=== PATIENT | male | born 1980 | race Caucasian/White ===

== ENCOUNTER 2020-12-13 13:48 | Inpatient (IN) | payer OTHER, SELFPAY ==
[2020-12-13 14:32] VITALS: BP 157/96; PULSE 88; RESP 18; TEMP 36.6; O2SAT 98; BMI 30.4
--- NOTE | 2020-12-13 15:42 | ED_ITS ---
HPI - Psych General Chief Complaint: Psychiatric Symptoms <DIONNA Junior - Last Filed: 12/13/20 17:00> Stated Complaint: withdrawal - crisis <DIONNA Junior Last Filed: 12/13/20 17:00> Time Seen by Provider: 12/13/20 15:03 <DIONNA Junior Last Filed: 12/13/20 17:00> Source: patient <DIONNA Junior Last Filed: 12/13/20 17:00> Mode of arrival: ambulatory <DIONNA Junior Last Filed: 12/13/20 17:00> History of Present Illness HPI Narrative: 40-year-old male with no significant past medical history presenting to the ED complaining of suicidal ideations with vague plan, increased anxiety, and reported withdrawal symptoms from Klonopin and Remeron which he stopped taking about 40 hours ago. Reports medication have not been working for him and has been fed up, states his doctor is not listening to him. Also reports acute on chronic abdominal discomfort and diarrhea. Denies nausea, vomiting, fever, chills, cough, CP/SOB, EtOH/illicit drug use, HI <DIONNA Junior Last Filed: 12/13/20 17:00> Related Data Home Medications: Home Medications Medication Instructions Recorded Confirmed clonazepam 1 mg PO TID PRN 12/13/20 12/13/20 mirtazapine 15 mg PO BEDTIME 12/13/20 12/13/20 <DIONNA Junior - Last Filed: 12/13/20 17:00> Allergies/Adverse Reactions: Allergies Allergy/AdvReac Type Severity Reaction Status Date / Time No Known Allergies Allergy Unverified 12/13/20 15:16 <DIONNA Junior Last Filed: 12/13/20 17:00> Review of Systems Review of Systems: Constitutional: No Fever, No Chills, No Fatigue, No Malaise Cardiovascular: No Chest Pain, No SOB Respiratory: No Cough, No Dyspnea Gastrointestinal: No Nausea, No Vomiting, + Diarrhea, No Constipation, + Abdominal pain Genitourinary: No Dysuria, No Urinary Frequency, No Hematuria, No Flank Pain Musculoskeletal: No joint pain, No Myalgias, No Joint Swelling Skin: No Skin Lesions, No rash Psych: +Anxiety/Panic, No Depression, + SI/HI <DIONNA Junior - Last Filed: 12/13/20 17:00> Yes all other systems are reviewed and are negative <DIONNA Junior - Last Filed: 12/13/20 17:00> [facility] Past Medical History Attestation statement: The following information was validated with the patient. <DIONNA Junior - Last Filed: 12/13/20 17:00> Social History Social History: Social History Advance Directives: No Advance Directives Information Provided: No <DIONNA Junior - Last Filed: 12/13/20 17:00> Physical Exam Vital Signs: Vital Signs: Last Vital Signs Temp 98.0 F 12/13/20 23:36 Pulse 84 12/13/20 23:36 Resp 16 12/13/20 23:36 BP 136/86 12/13/20 23:36 Pulse Ox 98 12/13/20 23:36 Body Mass Index 30.4 <DIONNA Junior - Last Filed: 12/13/20 17:00> Vital Signs: Last Vital Signs Temp 98.0 F 12/13/20 23:36 Pulse 84 12/13/20 23:36 Resp 16 12/13/20 23:36 BP 136/86 12/13/20 23:36 Pulse Ox 98 12/13/20 23:36 Body Mass Index 30.4 <MOUSTAPHA Peñaloza-JOSÉ MIGUEL - Last Filed: 12/14/20 01:49> Const: Other: anxious/guarded <DIONNA Junior - Last Filed: 12/13/20 17:00> General: cooperative, healthy appearing, alert and awake <DIONNA Junior - Last Filed: 12/13/20 17:00> Limitations: no limitations <DIONNA Junior - Last Filed: 12/13/20 17:00> HENMT: Head: Yes normal to inspection <DIONNA Junior - Last Filed: 12/13/20 17:00> Ears: hearing grossly normal bilaterally <DIONNA Junior - Last Filed: 12/13/20 17:00> General nose exam: Normal external nose present <DIONNA Junior - Last Filed: 12/13/20 17:00> Face and sinus: Yes normal facial exam <Radha Mesha NC - Last Filed: 12/13/20 17:00> Eyes: General: appearance normal, both eyes and all related structures <Radha Mesha NC - Last Filed: 12/13/20 17:00> EOM: EOMs intact bilaterally <Radha Mesha NC - Last Filed: 12/13/20 17:00> Neck: Neck: Yes normal visual inspection and Yes no meningeal signs <Radha Zimmer NC - Last Filed: 12/13/20 17:00> Resp: Effort & Inspection: normal respiratory effort <Radhadarius Zimmer NC - Last Filed: 12/13/20 17:00> Auscultation: clear to auscultation bilaterally, no rales, no rhonchi and no wheezes <Radhadarius Zimmer NC - Last Filed: 12/13/20 17:00> Cardio: Rate: regular rate <Radha Zimmer NC - Last Filed: 12/13/20 17:00> Heart sounds: S1 normal heart sound present and S2 normal heart sound present <Radha Mesha NC - Last Filed: 12/13/20 17:00> GI: Inspection: Yes normal to inspection <Radhadarius Zimmer NC - Last Filed: 12/13/20 17:00> Palpation (GI): Soft to palpation, nontender, no guarding and not rigid <Radhadarius Zimmer NC - Last Filed: 12/13/20 17:00> Skin: Rashes: no rashes <Radha Zimmer NC - Last Filed: 12/13/20 17:00> Wounds: no wounds <Radha Mesha NC - Last Filed: 12/13/20 17:00> Neuro: General: no meningeal signs <Radha Zimmer NC - Last Filed: 12/13/20 17:00> Gait exam (Neuro): Normal gait present <Radha Zimmer NC - Last Filed: 12/13/20 17:00> Extrem: General: Yes normal to inspection <Radha Zimmer NC - Last Filed: 12/13/20 17:00> Psych: Appearance: grossly normal <Radha Zimmer NC - Last Filed: 12/13/20 17:00> Attitude: Guarded attititude/behavior present <DIONNA Junior - Last Fi led: 12/13/20 17:00> Thought process: Perseverating thought process present <DIONNA Junior - Last Filed: 12/13/20 17:00> Thought content: Suicidality present and Depressive thoughts present <DIONNA Junior - Last Filed: 12/13/20 17:00> Course Course Course Narrative: -labs unremarkable -1700-- physician observation initiated as patient needs more time to be evaluated by BHN. ED care transferred to [facility]RI[facility] pending BHN eval <DIONNA Junior - Last Filed: 12/13/20 17:00> Provider observation continued. Awaiting for BHN evaluation for the need for psych admission. During observation patient's vitals were stable, patient is alert and oriented. Neural: Nonfocal, lung sounds clear. Respirations nonlabored. Patient reported to have urgency to void, urine was done and negative for leukocytosis, ketones or blood. <SAURABH Peñaloza - Last Filed: 12/14/20 01:49> MDM - Psych MDM Narrative Medical decision making narrative: 40-year-old male with no significant past medical history presenting to the ED complaining of suicidal ideations with vague plan, increased anxiety, and reported withdrawal symptoms from Klonopin and Remeron which he stopped taking about 40 hours ago. On exam VSS, NAD, physical exam as above, abdomen soft/nontender. Low concern for SBO/gastroenteritis or colitis/appendicitis without tenderness on exam. Plan: Labs, UA, MCMILLAN, drug screen, BHN consult <DIONNA Junior - Last Filed: 12/13/20 17:00> Medical Records Attestation: I reviewed the patient's medical records. <DIONNA Junior - Last Filed: 12/13/20 17:00> Lab Data Attestation: I reviewed the patient's lab results. <DIONNA Junior - Last Filed: 12/13/20 17:00> Result diagrams: : 12/13/20 15:41 12/13/20 15:41 <DIONNA Junior - Last Filed: 12/13/20 17:00> Labs: Lab Results 12/13/20 12/13/20 12/13/20 Range/Units 15:41 15:41 15:41 WBC 11.3 H (4.8-10.8) X10*3/uL RBC 5.42 (4.60-5.80) X10*6/uL Hgb 17.4 (14.0-18.0) g/dl Hct 49.9 (42-52) % MCV 92.1 (80-98) fL MCH 32.1 (27.0-33.0) pg MCHC 34.9 (31.0-36.0) g/dl RDW 11.9 (11.0-16.0) % Plt Count 247 (160-400) X10*3/uL MPV 8.5 L (9.4-12.4) fL Immature Gran % (Auto) 0.4 (0.0-0.4) % Neut % (Auto) 76.2 H (45-73) % Lymph % (Auto) 17.8 L (20-40) % [place] % (Auto) 5.2 (2-11) % Eos % (Auto) 0.1 (0-4) % Baso % (Auto) 0.3 (0-2) % Lymph # (Auto) 2.0 (1.2-4.9) X10*3/uL [place] # (Auto) 0.6 (0.1-1.2) X10*3/uL Eos # (Auto) 0.0 (0.0-0.4) X10*3/uL Baso # (Auto) 0.0 (0.0-0.2) X10*3/uL Abs Immat Gran (auto) 0.04 H (0.00-0.03) X10*3/uL Absolute Neuts (auto) 8.6 H (2.0-8.3) X10*3/uL Absolute Nucleated RBC 0.000 (0.0-0.012) X10*3/uL Nucleated RBC % (auto) 0.0 (0.0-0.2) /100WBC Hold Blue Top SEE NOTE Sodium 140 (135-145) mmol/L Potassium 3.8 (3.3-5.1) mmol/L Chloride 103 (96-108) mmol/L Carbon Dioxide 25 (22-29) mmol/L Anion Gap 16 (12-20) BUN 14 (9-16) mg/dL Creatinine 1.02 (0.5-1.4) mg/dL Estim Creat Clear Calc 105.2 Estimated GFR > 60 Random Glucose 107 (60-115) mg/dL Calcium 10.0 (8.4-10.2) mg/dL Magnesium 1.9 (1.6-2.6) mg/dL Total Bilirubin 1.2 H (0.0-1.0) mg/dL Direct Bilirubin 0.3 (0.0-0.5) mg/dL AST 21 (5-37) U/L ALT 39 (0-40) U/L Alkaline Phosphatase 109 (39-117) U/L Total Protein 7.8 (6.5-8.0) g/dL Albumin 4.7 (3.5-5.0) g/dL Lipase 17 (8-78) U/L Urine Color Urine Appearance Urine pH (5.0-8.0) Ur Specific [place] (1.005-1.025) Urine Protein (NEG-TRACE) MG/DL Urine Glucose (UA) (NEG) MG/DL Urine Ketones (NEG) MG/DL Urine Blood (NEG) Urine Nitrite (NEG) Ur Leukocyte Esterase (NEG) Urine Opiates Screen (Not Detect) Ur Barbiturates Screen (Not Detect) Ur Phencyclidine Scrn (Not Detect) Ur Amphetamines Screen (Not Detect) U Benzodiazepines Scrn (Not Detect) Urine Cocaine Screen (Not Detect) U Marijuana (THC) Screen (Not Detect) COVID-19 (JENN) (Negative) COVID-19 Clin Com 12/13/20 12/13/20 12/13/20 Range/Units 16:19 16:19 19:30 WBC (4.8-10.8) X10*3/uL RBC (4.60-5.80) X10*6/uL Hgb (14.0-18.0) g/dl Hct (42-52) % MCV (80-98) fL MCH (27.0-33.0) pg MCHC (31.0-36.0) g/dl RDW (11.0-16.0) % Plt Count (160-400) X10*3/uL MPV (9.4-12.4) fL Immature Gran % (Auto) (0.0-0.4) % Neut % (Auto) (45-73) % Lymph % (Auto) (20-40) % [place] % (Auto) (2-11) % Eos % (Auto) (0-4) % Baso % (Auto) (0-2) % Lymph # (Auto) (1.2-4.9) X10*3/uL [place] # (Auto) (0.1-1.2) X10*3/uL Eos # (Auto) (0.0-0.4) X10*3/uL Baso # (Auto) (0.0-0.2) X10*3/uL Abs Immat Gran (auto) (0.00-0.03) X10*3/uL Absolute Neuts (auto) (2.0-8.3) X10*3/uL Absolute Nucleated RBC (0.0-0.012) X10*3/uL Nucleated RBC % (auto) (0.0-0.2) /100WBC Hold Blue Top Sodium (135-145) mmol/L Potassium (3.3-5.1) mmol/L Chloride (96-108) mmol/L Carbon Dioxide (22-29) mmol/L Anion Gap (12-20) BUN (9-16) mg/dL Creatinine (0.5-1.4) mg/dL Estim Creat Clear Calc Estimated GFR Random Glucose (60-115) mg/dL Calcium (8.4-10.2) mg/dL Magnesium (1.6-2.6) mg/dL Total Bilirubin (0.0-1.0) mg/dL Direct Bilirubin (0.0-0.5) mg/dL AST (5-37) U/L ALT (0-40) U/L Alkaline Phosphatase (39-117) U/L Total Protein (6.5-8.0) g/dL Albumin (3.5-5.0) g/dL Lipase (8-78) U/L Urine Color YELLOW Urine Appearance CLEAR Urine pH 6.0 (5.0-8.0) Ur Specific [place] 1.010 (1.005-1.025) Urine Protein NEG (NEG-TRACE) MG/DL Urine Glucose (UA) NEG (NEG) MG/DL Urine Ketones 15 (NEG) MG/DL Urine Blood NEG (NEG) Urine Nitrite NEG (NEG) Ur Leukocyte Esterase NEG (NEG) Urine Opiates Screen Not Detected (Not Detect) Ur Barbiturates Screen Not Detected (Not Detect) Ur Phencyclidine Scrn Not Detected (Not Detect) Ur Amphetamines Screen Not Detected (Not Detect) U Benzodiazepines Scrn Not Detected (Not Detect) Urine Cocaine Screen Not Detected (Not Detect) U Marijuana (THC) Screen Not Detected (Not Detect) COVID-19 (JNEN) Negative (Negative) COVID-19 Clin Com See Note <DIONNA Junior - Last Filed: 12/13/20 17:00> Lab Results 12/13/20 12/13/20 12/13/20 Range/Units 15:41 15:41 15:41 WBC 11.3 H (4.8-10.8) X10*3/uL RBC 5.42 (4.60-5.80) X10*6/uL Hgb 17.4 (14.0-18.0) g/dl Hct 49.9 (42-52) % MCV 92.1 (80-98) fL MCH 32.1 (27.0-33.0) pg MCHC 34.9 (31.0-36.0) g/dl RDW 11.9 (11.0-16.0) % Plt Count 247 (160-400) X10*3/uL MPV 8.5 L (9.4-12.4) fL Immature Gran % (Auto) 0.4 (0.0-0.4) % Neut % (Auto) 76.2 H (45-73) % Lymph % (Auto) 17.8 L (20-40) % [place] % (Auto) 5.2 (2-11) % Eos % (Auto) 0.1 (0-4) % Baso % (Auto) 0.3 (0-2) % Lymph # (Auto) 2.0 (1.2-4.9) X10*3/uL [place] # (Auto) 0.6 (0.1-1.2) X10*3/uL Eos # (Auto) 0.0 (0.0-0.4) X10*3/uL Baso # (Auto) 0.0 (0.0-0.2) X10*3/uL Abs Immat Gran (auto) 0.04 H (0.00-0.03) X10*3/uL Absolute Neuts (auto) 8.6 H (2.0-8.3) X10*3/uL Absolute Nucleated RBC 0.000 (0.0-0.012) X10*3/uL Nucleated RBC % (auto) 0.0 (0.0-0.2) /100WBC Hold Blue Top SEE NOTE Sodium 140 (135-145) mmol/L Potassium 3.8 (3.3-5.1) mmol/L Chloride 103 (96-108) mmol/L Carbon Dioxide 25 (22-29) mmol/L Anion Gap 16 (12-20) BUN 14 (9-16) mg/dL Creatinine 1.02 (0.5-1.4) mg/dL Estim Creat Clear Calc 105.2 Estimated GFR > 60 Random Glucose 107 (60-115) mg/dL Calcium 10.0 (8.4-10.2) mg/dL Magnesium 1.9 (1.6-2.6) mg/dL Total Bilirubin 1.2 H (0.0-1.0) mg/dL Direct Bilirubin 0.3 (0.0-0.5) mg/dL AST 21 (5-37) U/L ALT 39 (0-40) U/L Alkaline Phosphatase 109 (39-117) U/L Total Protein 7.8 (6.5-8.0) g/dL Albumin 4.7 (3.5-5.0) g/dL Lipase 17 (8-78) U/L Urine Color Urine Appearance Urine pH (5.0-8.0) Ur Specific [place] (1.005-1.025) Urine Protein (NEG-TRACE) MG/DL Urine Glucose (UA) (NEG) MG/DL Urine Ketones (NEG) MG/DL Urine Blood (NEG) Urine Nitrite (NEG) Ur Leukocyte Esterase (NEG) Urine Opiates Screen (Not Detect) Ur Barbiturates Screen (Not Detect) Ur Phencyclidine Scrn (Not Detect) Ur Amphetamines Screen (Not Detect) U Benzodiazepines Scrn (Not Detect) Urine Cocaine Screen (Not Detect) U Marijuana (THC) Screen (Not Detect) COVID-19 (JENN) (Negative) COVID-19 Clin Com 12/13/20 12/13/20 12/13/20 Range/Units 16:19 16:19 19:30 WBC (4.8-10.8) X10*3/uL RBC (4.60-5.80) X10*6/uL Hgb (14.0-18.0) g/dl Hct (42-52) % MCV (80-98) fL MCH (27.0-33.0) pg MCHC (31.0-36.0) g/dl RDW (11.0-16.0) % Plt Count (160-400) X10*3/uL MPV (9.4-12.4) fL Immature Gran % (Auto) (0.0-0.4) % Neut % (Auto) (45-73) % Lymph % (Auto) (20-40) % [place] % (Auto) (2-11) % Eos % (Auto) (0-4) % Baso % (Auto) (0-2) % Lymph # (Auto) (1.2-4.9) X10*3/uL [place] # (Auto) (0.1-1.2) X10*3/uL Eos # (Auto) (0.0-0.4) X10*3/uL Baso # (Auto) (0.0-0.2) X10*3/uL Abs Immat Gran (auto) (0.00-0.03) X10*3/uL Absolute Neuts (auto) (2.0-8.3) X10*3/uL Absolute Nucleated RBC (0.0-0.012) X10*3/uL Nucleated RBC % (auto) (0.0-0.2) /100WBC Hold Blue Top Sodium (135-145) mmol/L Potassium (3.3-5.1) mmol/L Chloride (96-108) mmol/L Carbon Dioxide (22-29) mmol/L Anion Gap (12-20) BUN (9-16) mg/dL Creatinine (0.5-1.4) mg/dL Estim Creat Clear Calc Estimated GFR Random Glucose (60-115) mg/dL Calcium (8.4-10.2) mg/dL Magnesium (1.6-2.6) mg/dL Total Bilirubin (0.0-1.0) mg/dL Direct Bilirubin (0.0-0.5) mg/dL AST (5-37) U/L ALT (0-40) U/L Alkaline Phosphatase (39-117) U/L Total Protein (6.5-8.0) g/dL Albumin (3.5-5.0) g/dL Lipase (8-78) U/L Urine Color YELLOW Urine Appearance CLEAR Urine pH 6.0 (5.0-8.0) Ur Specific [place] 1.010 (1.005-1.025) Urine Protein NEG (NEG-TRACE) MG/DL Urine Glucose (UA) NEG (NEG) MG/DL Urine Ketones 15 (NEG) MG/DL Urine Blood NEG (NEG) Urine Nitrite NEG (NEG) Ur Leukocyte Esterase NEG (NEG) Urine Opiates Screen Not Detected (Not Detect) Ur Barbiturates Screen Not Detected (Not Detect) Ur Phencyclidine Scrn Not Detected (Not Detect) Ur Amphetamines Screen Not Detected (Not Detect) U Benzodiazepines Scrn Not Detected (Not Detect) Urine Cocaine Screen Not Detected (Not Detect) U Marijuana (THC) Screen Not Detected (Not Detect) COVID-19 (EJNN) Negative (Negative) COVID-19 Clin Com See Note <MOUSTAPHA Peñaloza-JOSÉ MIGUEL - Last Filed: 12/14/20 01:49> Discharge Plan Discharge Clinical Impression: Depression, Suicidal ideation <DIONNA Junior - Last Filed: 12/13/20 17:00> Prescriptions: No Action clonazepam 1 mg Tablet 1 mg PO TID PRN (Reason: Anxiety) RF: 0 mirtazapine 30 mg Tablet 15 mg PO BEDTIME RF: 0 <DIONNA Junior - Last Filed: 12/13/20 17:00>
[2020-12-13 15:45] LABS: MANUAL DIFF FLAG NO
[2020-12-13 15:50] LABS: Basophils Percent Auto 0.3 % (0-2); Eosinophils Percent Auto 0.1 % (0-4); Hematocrit 49.9 % (42-52); Hemoglobin 17.4 g/dl (14.0-18.0); Imm Gran Abs Auto 0.04 X10*3/uL (0.00-0.03); Imm Gran Pct Auto 0.4 % (0.0-0.4); Lymphocytes Percent Auto 17.8 % (20-40); Mean Corpuscular HGB Conc 34.9 g/dl (31.0-36.0); Mean Corpuscular Hemoglobin 32.1 pg (27.0-33.0); Mean Corpuscular Volume 92.1 fL (80-98); Mean Platelet Volume 8.5 fL (9.4-12.4); Monocytes Absolute Auto 0.6 X10*3/uL (0.1-1.2); Monocytes Percent Auto 5.2 % (2-11); Neutrophils Absolute Auto 8.6 X10*3/uL (2.0-8.3); Neutrophils Percent Auto 76.2 % (45-73); Platelet Count 247 X10*3/uL (160-400); Red Blood Count 5.42 X10*6/uL (4.60-5.80); Red Cell Distribution Width 11.9 % (11.0-16.0); White Blood Count 11.3 X10*3/uL (4.8-10.8)
[2020-12-13 16:21] LABS: Alanine Aminotransferase 39 U/L (0-40); Albumin Level 4.7 g/dL (3.5-5.0); Alkaline Phosphatase 109 U/L (39-117); Anion Gap 16 (12-20); Aspartate Amino Transferase 21 U/L (5-37); Bilirubin Direct 0.3 mg/dL (0.0-0.5); Bilirubin Total 1.2 mg/dL (0.0-1.0); Blood Urea Nitrogen 14 mg/dL (9-16); Carbon Dioxide 25 mmol/L (22-29); Chloride 103 mmol/L (96-108); Creatinine Clr Calc Pharmacy 105.2; Estimated Glomerular Filt Rate > 60; Glucose Random 107 mg/dL (60-115); Lipase 17 U/L (8-78); Magnesium 1.9 mg/dL (1.6-2.6); Potassium 3.8 mmol/L (3.3-5.1); Sodium 140 mmol/L (135-145); Total Protein 7.8 g/dL (6.5-8.0)
[2020-12-13 16:37] LABS: Glucose Urine UA NEG (NEG); Leukocyte Esterase Urine NEG (NEG); Nitrite Urine NEG (NEG); Urine Blood NEG (NEG); Urine Ketones 15 MG/DL (NEG); Urine Protein NEG (NEG-TRACE)
[2020-12-13 16:38] LABS: Appearance Urine CLEAR; Color Urine YELLOW
[2020-12-13 16:55] LABS: Amphetamine Screen Urine Not Detected (Not Detect); Barbiturates, Urine Not Detected (Not Detect); Benzodiazepines Screen Urine Not Detected (Not Detect); Cannabinoid Screen Urine Not Detected (Not Detect); Cocaine Screen Urine Not Detected (Not Detect); Opiate Screen Urine Not Detected (Not Detect); Phencyclidine Screen Urine Not Detected (Not Detect)
[2020-12-13 20:01] LABS: COVID-19 Test Negative (Negative)
[2020-12-13 21:08] VITALS: BP 141/78; PULSE 92; RESP 18; TEMP 36.7; O2SAT 98
--- NOTE | 2020-12-13 21:12 | PC.NURSE ---
DOMENICO faxed/called/spoke with Pauline, confirmed receipt of referral, no ETA.
--- NOTE | 2020-12-13 21:55 | PC.NURSE ---
Patient reported Dysurea, provider notified and saw the patient, no new order at this time, patient is negative for UTI, nighttime medication offered/efused by saying they do nothing, it is complicated, psych consult ordered to review medication, will continue to monitor.
[2020-12-13 23:36] VITALS: BP 136/86; PULSE 84; RESP 16; TEMP 36.7; O2SAT 98
--- NOTE | 2020-12-14 07:13 | PC.NURSE ---
Report received from ESTEFANIA Sullivan. Pt resting, resp unlabored.
--- NOTE | 2020-12-14 08:08 | PC.NURSE ---
Pt awake, alert. Affect anxious. Ptrequesting clonopin but then declined it stating that he would only take those from his own bottle. Pt reporting that generic clonopin not consistently effective. Pt denies SI at this time- reports he did not sleep, states sleep is a 'complicated issue' for him. Pt states he would like to leave, that he arrived voluntaril;y. Pt aware that he must be seen by crisis and is in agreement with plan.
[2020-12-14 08:26] VITALS: BP 146/85; PULSE 94; RESP 18; TEMP 36.6; O2SAT 97
[2020-12-14] MEDS: clonazePAM 1 MG TABLET PO ×3 (08:53→23:14)
--- NOTE | 2020-12-14 08:55 | PC.NURSE ---
Pt approached RN and requested clonopin, despite the fact that it was from [facility]- pt stated 'i just want to restart my medications so that I can be discharged.'
--- NOTE | 2020-12-14 10:31 | PC.NURSE ---
pt resting, resp unlabored
--- NOTE | 2020-12-14 11:13 | PC.NURSE ---
Pt gave permission x1 to speak w/ mother. Mother expressed concerns re: medication compliance.
--- NOTE | 2020-12-14 12:20 | PC.NURSE ---
Report received. Meeting with CARE team at current. Calm and cooperative.
--- NOTE | 2020-12-14 13:08 | MHC.CARE ---
CARE alerted [facility] terminal operations supervisor at 12n that CARE to take case when they stated they would send someone later . Pt arrived last night around 9pm and has been waiting.
--- NOTE | 2020-12-14 13:45 | MHC.CARE ---
CARE spoke w pts mother who had called POD earlier and asked to be contacted once seen by crisis. CARE secured section 12a as pt is not agreeable to tx at this time and poses risk to self if discharged based on his intentional took self off meds in hopes that I had a seizure and . 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 Per POD pts mother has been calling for update however pt had not been assessed at the times she was calling. At 1315 Pts mother (Olga )reported her concern for her son over the past month and she knew he needed help after taking himself off of his prescribed medications hence they sought help via bringing pt to [facility] ED last night. Pt has been living in his parents home since last January due to his overall worsening in anxiety and depressive sxs. She feels that pt needs help with detox from his medications. She reported that pt has called many times this am and would hang up on them when they did not agreed to come pick him up. T/w explained that pt would benefit from IPLOC tx for underlying mental health that has clearly declined to point of not able to function and feel he wanted to take himself off of his meds of 5 years in order to produce a seizure as a means of suicide. T/w explained the process as a bedsearch and how a Psych consult is placed for him to be seen tomorrow for added input on this. 1350-Shortly after this call 30 min call with pts mother, pts father (Miguel) called CARE with a less than cooperative approach to collateral contact with t/w. He made his intentions known and clear that if my son gets placed anywhere that is not the best care I will tell you I will come down there and rip him out of there myself . T/w shared that pt was now on a section 12a for his own safety after assessment due to his report of suicidal thinking and attempt by taking himself off of meds with intent to in his withdrawal. Miguel carefully and slowly spoke at t/w that my son not having health insurance will not be a reason to not have the best care , and commented how his shared her interpretation of the bedsearch process. T/w explained the process again and rationale for why this is the case due to imminent risk. T/w also stated that his shared that pt has access to guns and these guns are at their house. Miguel then asked if or how he can take his son home without tx and t/w explained he would have to speak directly to ED provider in order for this to be lifted due to imminent risk. T/w made the clinical decision after crisis interview that pt would be best served in a contained setting and due to pts unwillingness to consent to an IPLOC admisson pt was placed on a section 12a. T/w also strongly asking for Psych consult to be done tomorrow for added diagnostic clarity and assessment of medication withdrawal. Miguel verbalized an understanding of this and continued to make his point that I do not want my son going anywhere where I cannot control how things go and referred to how the one time [facility] was traumatizing and refuse to take him there again. He then stated the family had been in contact with admissions at [facility] in [place] and will continue to speak with them and will pay out of pocket . T/w asked if there was a plan for the access to weapons and he replied I will place them someone where he will never find them . He commented that he views that t/w made your assessment and agreed that pt was attempting to take his life on a deceptive method . He asked to visit and bring Bible and given permission at any time to do this. This call was over 30 mins.
--- NOTE | 2020-12-14 16:47 | PC.NURSE ---
Pt resting in a bed at current, no complaints at this time, calm.
[2020-12-14] MEDS: Mirtazapine 7.5 MG TABLET 15 MG PO (21:30)
[2020-12-14] MEDS: HaloperidoL 5 MG TABLET PO (23:26)
[2020-12-14] MEDS: diphenhydrAMINE HCL 25 MG TABLET 50 MG PO (23:26)
--- NOTE | 2020-12-14 23:30 | PC.NURSE ---
Patient complained of not being able to sleep, reported no medication for sleep have worked in the past, provider notified/ordered Haldol 5 mg po and Benadryl 50 mg po/administered as ordered, pending effect, will continue to monitor.
--- NOTE | 2020-12-15 00:33 | MHC.CARE ---
This technical document writer contacted [facility] re: bed availability. Attempted to fax referral several times, unsuccessfully. This technical document writer spoke with pt re: his thoughts on going to [place] for admission, which pt shrugged and said he would do whatever. Shortly after this conversation pt's father contacted CARE team and pod to dispute the possibility that pt would be going to [facility]. This technical document writer spoke with pt about communicating his concerns and apprehensions to ensure that the care he receives will be effective and comfortable for him. This technical document writer contacted pt's father re: the bedsearch process and explained the limitations of trying to place someone in a facility on weekends. Pt's father is advocating for [facility], citing a specific health care facility administrator that he had spoken with named Pranav Arreola (CLIFF for short) who explained that they can do a private pay situation and would begin the assessment/referral process next week. This technical document writer reiterated that pt would not be leaving the ED until he is accepted for admission and actively being transferred for aforementioned admission, which will need to be a process that the CARE team is involved with. Pt's father understands that pt will likely be in the ED through the weekend, with possibility that he may be able to remain at our facility for admission or explore the possibility of a transfer to [facility]. For reference purposes only: CLIFF at [facility] [phone] General referral number [phone] Addiction specific referral number [phone]
[2020-12-15 00:58] VITALS: BP 126/78; PULSE 94; RESP 17; TEMP 37.1; O2SAT 97
--- NOTE | 2020-12-15 07:11 | PC.NURSE ---
Report received from ESTEFANIA Sullivan. Pt awake, requesting to shower, states he has not slept.
[2020-12-15] MEDS: clonazePAM 1 MG TABLET PO ×2 (07:53→15:03)
[2020-12-15 07:57] VITALS: BP 110/80; PULSE 101; RESP 16; TEMP 36.7; O2SAT 95
--- NOTE | 2020-12-15 09:21 | PC.NURSE ---
Pt gives permission to speak with father and mother.
--- NOTE | 2020-12-15 10:08 | MHC.CARE ---
CARE spoke with Lexy at [facility] in [place]. She is not familiar with pts name or referral by family as reported by pts father stated. Inquiry made by t/w for private pay as requested by pts father and was quoted initial down payment to be admitted [facility] is 42k. T/w met w pt as pt was requesting this am. Pt stated he wanted to apologize for being rude yesterday and he was told by his father that he they found him to be rude . T/w reassured pt that he was not taken as rude and that CARE is working to find him placement and tx to help him. He verbalized an understanding of this as well as willingness to this process admitting that he was feeling confused and frustrated yesterday. Pt stated he feels that my father does not understand this and is adamant that I am detoxed without a clear understanding of pts underlying mental health needs. Pt is legally capable of his own decision making and his father is not an invoked POA/HCP or Guardian currently. Pt stated he loves and relies on his parents but they don't understand . Pt is verbalizing a willingness to seek guidance from Medical Professional preferred MD as to tx recommendations. Pt also verbalized willingness to seek tx in alternate settings (outside of [place]) in contrast to what his father is firmly requesting. Psych consult placed and pending.
--- NOTE | 2020-12-15 11:03 | PC.NURSE ---
Pt reporting multiple episodes of diarrhea since arriving on unit. provider notified. Pt states this was not happening before arriving to the pod.
--- NOTE | 2020-12-15 11:18 | PC.NURSE ---
Dr. Getachew Mercado in to evaluate.
[2020-12-15] MEDS: Loperamide HCl 2 MG CAPSULE 4 MG PO (12:37)
[2020-12-15] MEDS: risperiDONE 1 MG TABLET PO ×2 (12:38→20:14)
[2020-12-15] MEDS: Sertraline HCL 25 MG TABLET PO (12:38)
--- NOTE | 2020-12-15 12:50 | PC.NURSE ---
Pt seen by Dr. Getachew rangel - medicated as ordered- pt aware of what medications he is taking and in agreement.
[2020-12-15] MEDS: Acetaminophen 325 MG TABLET 650 MG PO (13:10)
--- NOTE | 2020-12-15 13:46 | MHC.CARE ---
CARE rec call that pts parents located in [facility] to speak w CARE. T/w obtained permission from pt directly prior to this and then met w parents. Pts father wanted to continue to discuss how he has spoken with Luz Marina and pursue voluntary detox via private pay. He continued to not have clarity that pt is currently an [facility] psych bedsearch (uninsured) which is a higher level of care. T/w again explained the level of care process, assessment and step down options. He continued to imply that it was inaccurate that pt required a locked setting or mental health tx. T/w shared that a Board Certified Psychiatrist was in support of t/ws assessment and dispo and the plan remains. Pt also expressed willingness to agree to his plan. Pts parents then added he calls us and tells us differently and asks us to take him home . Pt is agreeable to tx in discussion with t/w and this was reiterated. Pt will continue as a bedsearch as an uninsured psych bedsearch. Pt can be referred to in house financial counseling for [facility] referral as he is not earning an income and may qualify as he has in the past. T/w lastly shared the private pay costs with pts father for the admission only (not including other fees and step down costs) which was met with surprise and not seeking to purse any longer as so strongly before. Parents now expressed support of bedsearch.
[2020-12-15 14:00] VITALS: RESP 18
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
--- NOTE | 2020-12-15 16:28 | PC.NURSE ---
Pt resting, resp unlabored. No further report of loose stools. Late entry: Mother in to visit.
--- NOTE | 2020-12-15 18:21 | PC.NURSE ---
Pt awake, eating meal, no concerns reported at this time.
--- NOTE | 2020-12-15 19:45 | PC.NURSE ---
Patient in hallway wandering, calm and quiet, no distress reported, will continue to monitor.
[2020-12-15] MEDS: hydrOXYzine HCL 50 MG TABLET PO (20:14)
[2020-12-15] MEDS: Mirtazapine 7.5 MG TABLET 15 MG PO (20:14)
[2020-12-16] VITALS: BP 137/96; PULSE 117; RESP 18; TEMP 36.6; O2SAT 99
[2020-12-16] MEDS: clonazePAM 1 MG TABLET PO ×4 (00:01→23:43)
--- NOTE | 2020-12-16 00:04 | PC.NURSE ---
ESTEFANIA BOOGIE AWARE OF PATIENT HIGH HEART RATE.
[2020-12-16 05:46] VITALS: RESP 16
--- NOTE | 2020-12-16 07:10 | PC.NURSE ---
Report received from ESTEFANIA Sullivan. Pt awake, alert. States he slept intermittently, affect more relaxed.
[2020-12-16] MEDS: risperiDONE 1 MG TABLET PO ×3 (07:36→21:44)
[2020-12-16] MEDS: Sertraline HCL 25 MG TABLET PO (07:36)
[2020-12-16 09:09] VITALS: BP 126/83; PULSE 110; RESP 18; TEMP 36.5; O2SAT 96
--- NOTE | 2020-12-16 10:41 | PC.NURSE ---
Pt resting, resp unlabored.
[2020-12-16] MEDS: Loperamide HCl 2 MG CAPSULE 4 MG PO (11:14)
--- NOTE | 2020-12-16 11:16 | PC.NURSE ---
Pt reporting an episode of loose stools agin. Provider aware of pt complaint, immodium given as ordered.
--- NOTE | 2020-12-16 12:11 | PC.NURSE ---
Pt spoke w/ financial counselor, currently resting, no further report of loose stools.
[2020-12-16 14:00] VITALS: RESP 20
--- NOTE | 2020-12-16 14:24 | PC.NURSE ---
Pt resting, resp unlabored
--- NOTE | 2020-12-16 15:02 | PC.NURSE ---
Pt awoke, requesting 1500 medications and cklonopin. Pt denies any further episode of loose stools.
[2020-12-16 17:04] VITALS: BP 120/69; PULSE 102; RESP 16; TEMP 36.8; O2SAT 97
--- NOTE | 2020-12-16 18:42 | PC.NURSE ---
Pt reports headache after taking risperdal. Declined tylenol or motrin. Currently resting in room, awake.
--- NOTE | 2020-12-16 19:07 | PC.NURSE ---
Report received. PT is resting in bed. Calm and cooperative. PT is inpatient bed search.
[2020-12-16] MEDS: Mirtazapine 7.5 MG TABLET 15 MG PO (21:44)
--- NOTE | 2020-12-17 | ECG_ITS ---
Test Reason : antipsychotic medication use, medical clearance Blood Pressure : / mmHG Vent. Rate : 101 BPM Atrial Rate : 101 BPM P-R Int : 164 ms QRS Dur : 086 ms QT Int : 328 ms P-R-T Axes : 049 -07 009 degrees QTc Int : 425 ms Sinus tachycardia Otherwise normal ECG No previous ECGs available Referred By: Radha Zimmer Electronically Signed By:LISA LEMONS MD
[2020-12-17 00:36] VITALS: BP 107/61; PULSE 104; RESP 18; TEMP 35.9; O2SAT 96
--- NOTE | 2020-12-17 07:10 | PC.NURSE ---
Report received. PT currently resting, calm and cooperative. PT is inpatient bedsearch.
[2020-12-17] MEDS: risperiDONE 1 MG TABLET PO ×3 (07:58→22:06)
[2020-12-17] MEDS: Sertraline HCL 25 MG TABLET PO (07:58)
[2020-12-17] MEDS: clonazePAM 1 MG TABLET PO ×3 (07:58→22:05)
[2020-12-17 08:15] VITALS: BP 144/79; PULSE 105; O2SAT 96
[2020-12-17] MEDS: Loperamide HCl 2 MG CAPSULE 4 MG PO (14:03)
--- NOTE | 2020-12-17 15:24 | MHC.CARE ---
Pts family confirmed that pts PCP was Dr Yovanny Dean at [facility] in [facility] [phone]. Pts family and pt both very pleased and appreciative of upcoming admission to . Pt signed a CV with t/w.
--- NOTE | 2020-12-17 17:04 | PC.NURSE ---
Nurse to nurse completed with Sandra from [facility].
[2020-12-17 18:00] VITALS: BP 134/79; PULSE 103; RESP 16; O2SAT 98
--- NOTE | 2020-12-17 18:57 | PC.ADMIT ---
PT IS A 40 YEAR OLD MALE WHO PRESENTED TO THE ED AFTER REPORTEDLY HAVING A SEIZURE. PT REPORTS THAT HE STOPPED TAKING HIS MEDICATIONS AFTER FEELING LIKE HE WANTED TO COMMIT SUICIDE. PT DENIES ANY CURRENT DEPRESSION. PT REPORTS THAT HE DOES HAVE ANXIETY AND THE ONLY THING THAT HELPS IS MEDICATION. PT DENIES CURRENT URGES TO HARM HIMSELF R OTHERS. HE STATES THAT HE CAN SEEK OUT STAFF IF HE IS HAVING SUICIDAL OR HOMICIDAL IDEATIONS. PT DENIES AUDITORY OR VISUAL HALLUCINATIONS. PT IS INDEPENDENTLY TAKING CARE OF ADLS. HE IS UNDURE IF HE HAS LOST WEIGHT IT IS DIFFICULT TO EAT WHEN ANXIOUS. PT REPORTS NO HX OF TRAUMA OR VIOLENCE. PT REPORTS THAT HE SUFFERS FROM INSOMNIA AND CANNOT SLEEP EVEN WITH MEDICATIONS. PT HAS HAD NO CURRENT LIFE CHANGES. HE STATES THERE IS NOTHING SPECIFIC THAT MADE HIM WANT TO . PT IS NOT A SMOKER OR A DRINKER. PT DOES NOT USE ANY UNPRESCRIBED SUBSTANCES. PT LIVES WITH HIS PARENTS AND IS SAFE IN HIS CURRENT SITUATION. PT IS ALERT AND ORIENTEDX4. PT WAS CALM AND COOPERATIVE DURING ADMISSION. HE IS CAPABLE OF ADVOCATING FOR HIS NEEDS. PT IS ANXIOUS AROUND PEOPLE, THEREFORE, HAS BEEN ISOLATIVE TO HIS ROOM.
[2020-12-17] MEDS: Mirtazapine 7.5 MG TABLET 15 MG PO (22:05)
[2020-12-18 06:00] VITALS: BP 128/75; PULSE 93; RESP 18; TEMP 35.1; O2SAT 96
[2020-12-18 07:26] LABS: MANUAL DIFF FLAG NO
[2020-12-18 07:33] LABS: Basophils Percent Auto 0.6 % (0-2); Eosinophils Absolute Auto 0.2 X10*3/uL (0.0-0.4); Eosinophils Percent Auto 2.6 % (0-4); Hematocrit 48.1 % (42-52); Hemoglobin 16.4 g/dl (14.0-18.0); Imm Gran Abs Auto 0.02 X10*3/uL (0.00-0.03); Imm Gran Pct Auto 0.3 % (0.0-0.4); Lymphocytes Absolute Auto 2.2 X10*3/uL (1.2-4.9); Lymphocytes Percent Auto 33.7 % (20-40); Mean Corpuscular HGB Conc 34.1 g/dl (31.0-36.0); Mean Corpuscular Hemoglobin 32.1 pg (27.0-33.0); Mean Corpuscular Volume 94.1 fL (80-98); Mean Platelet Volume 8.4 fL (9.4-12.4); Monocytes Absolute Auto 0.6 X10*3/uL (0.1-1.2); Monocytes Percent Auto 8.4 % (2-11); Neutrophils Absolute Auto 3.6 X10*3/uL (2.0-8.3); Neutrophils Percent Auto 54.4 % (45-73); Platelet Count 237 X10*3/uL (160-400); Red Blood Count 5.11 X10*6/uL (4.60-5.80); Red Cell Distribution Width 11.9 % (11.0-16.0); White Blood Count 6.7 X10*3/uL (4.8-10.8)
[2020-12-18 08:01] LABS: Cholesterol 166 mg/dL; HDL Cholesterol 37 mg/dL; LDL Cholesterol Calculated 89 mg/dl; Triglycerides 200 mg/dL
[2020-12-18 08:12] LABS: Estimated Average Glucose 108 mg/dL; Hemoglobin A1C 149.7022 umol/L; Hemoglobin A1c % 5.4 %
[2020-12-18 08:23] LABS: Thyroid Stimulating Hormone 1.83 uIU/mL (0.32-4.0)
[2020-12-18] MEDS: clonazePAM 1 MG TABLET PO ×3 (08:33→21:15)
[2020-12-18] MEDS: Sertraline HCL 25 MG TABLET PO (08:33)
[2020-12-18] MEDS: risperiDONE 1 MG TABLET PO ×3 (08:33→21:11)
[2020-12-18 09:50] LABS: Folate 18.7 ng/mL (> or = 4.0); Vitamin B12 586 pg/mL (200-900)
--- NOTE | 2020-12-18 16:31 | P.HPPS_ITS ---
HPI Chief Complaint: SI Sources of Information: patient interviewed, chart reviewed and crisis/core team assessment reviewed HPI Subjective Notes: Conditional Voluntary Narrative: Mr. Arechiga is a 40 year-old male with hx of mdd, anxiety who self presented to [facility] ED on 12/13/2020 reporting increased anxiety, passive suicidal ideation, increased depressed mood, feeling hopeless/helpless. He reported stopping residential dose of clonazepam 1mg po TID abruptly and experiencing symptoms of withdrawal. Pt reports having a seizure but denies LOC, which makes it less likely to have been a seizure. In the ED, his utox was negative for opioids, amphetamines, benzodiazepines, cocaine. He was seen in the ED by Dr. Christine Mercado who restarted patient on zoloft, risperidone and clonazepam. On the unit, Mr. Arechiga presents with blunted affect. He reports he was doing fairly fine up until about one month ago when he started feeling increasingly more hopeless, anxious, low energy, anhedonia. He reports clonazepam was no longer working for his mood and as he became more hopeless/helpless he decided to stop it cold turkey as in the past he has experienced withdrawal symptoms (note no witnessed seizure although pt claims he has had one which he noted on his own). He states intent of stopping cold turkey was hoping he would have a benzo withdrawal seizure and . On the unit, he continues to endorse depressed mood, passive suicidal ideation but denies any plan or intent. He denies history of visual or auditory hallucinations. He denies s/s of h ypomanic/manic episodes Collateral information was gathered from both parents. They report Mr. Patricia mace has always been a shy person, not relating much with others, minimal social relationship. They report pt has suffered from anxiety as child/teen, especially agorophobia, which pt currently denies and instead he reports an overall feeling of anxiety. No OCD traits. They denied history of suicide attempts. Parents concerns about possible physical dependency with residential use of clonazepam and fact that pt is reluctant to decrease dose or try other medications to manage his anxiety and depression. Pt has also decline individual psychotherapy for years. No hx of substance use- other than possible dependence to clonazepam. Pt and family denied hx of trauma. Pt denies trauma related to b eing in the . Past Psychiatric History: Inpatient: [facility] 2016 due to anxiety/depression OP: Dr. Kirby ([phone]) Suicide attempts: pt tried to stop clonazepam cold turkey hoping to have seizure and prior to this admission. 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 One trip to [facility]- no combat, peace related No children Substance History: Pt denies. ? benzodiazepine dependence/tolerance Trauma History: Pt denies. Diagnostics Vital Signs (24Hr): Vital Signs - 24 hr 12/17/20 18:00 12/18/20 06:00 Temperature 95.2 F L Pulse Rate 103 H 93 Respiratory Rate 16 18 Blood Pressure 134/79 128/75 Pulse Oximetry 98 96 Body Mass Index 30.4 Labs Results: 12/18/20 07:17 12/13/20 15:41 Labs: Laboratory Results - last 48 hr 12/18/20 12/18/20 12/18/20 07:17 07:17 07:17 WBC 6.7 RBC 5.11 Hgb 16.4 Hct 48.1 MCV 94.1 MCH 32.1 MCHC 34.1 RDW 11.9 Plt Count 237 MPV 8.4 L Immature Gran % (Auto) 0.3 Neut % (Auto) 54.4 Lymph % (Auto) 33.7 [place] % (Auto) 8.4 Eos % (Auto) 2.6 Baso % (Auto) 0.6 Lymph # (Auto) 2.2 [place] # (Auto) 0.6 Eos # (Auto) 0.2 Baso # (Auto) 0.0 Abs Immat Gran (auto) 0.02 Absolute Neuts (auto) 3.6 Absolute Nucleated RBC 0.000 Nucleated RBC % (auto) 0.0 Estimat Average Glucose 108 Hemoglobin A1c % 5.4 Triglycerides 200 Cholesterol 166 LDL Cholesterol, Calc 89 HDL Cholesterol 37 Vitamin B12 Folate TSH 1.83 12/18/20 07:17 WBC RBC Hgb Hct MCV MCH MCHC RDW Plt Count MPV Immature Gran % (Auto) Neut % (Auto) Lymph % (Auto) [place] % (Auto) Eos % (Auto) Baso % (Auto) Lymph # (Auto) [place] # (Auto) Eos # (Auto) Baso # (Auto) Abs Immat Gran (auto) Absolute Neuts (auto) Absolute Nucleated RBC Nucleated RBC % (auto) Estimat Average Glucose Hemoglobin A1c % Triglycerides Cholesterol LDL Cholesterol, Calc HDL Cholesterol Vitamin B12 586 Folate 18.7 TSH Meds/Allergies Meds Home Medications Acetaminophen (Acetaminophen 325 Mg Tablet) 650 mg PO Q6H PRN PRN Reason: Headache/Pain Mild Scale (1-3) Al Hydroxide/Mg Hydroxide (Magnesium Hydrox/Alum Hydrox 30 Ml Oral.Susp) 30 ml PO Q6H PRN PRN Reason: Heartburn/Nausea Clonazepam (Clonazepam 1 Mg Tablet) 1 mg PO TID [facility] Last Admin: 12/19/20 08:21 Dose: 1 mg Documented by: Hydroxyzine HCl (Hydroxyzine Hcl 25 Mg Tablet) 25 mg PO Q6H PRN PRN Reason: Anxiety Loperamide HCl (Loperamide Hcl 2 Mg Capsule) 4 mg PO Q6H PRN PRN Reason: Diarrhea Last Admin: 12/17/20 14:03 Dose: 4 mg Documented by: Magnesium Hydroxide (Milk Of Magnesia 30 Ml Oral.Susp) 30 ml PO DAILY PRN PRN Reason: Constipation Mirtazapine (Mirtazapine 7.5 Mg Tablet) 15 mg PO BEDTIME [facility] Last Admin: 12/18/20 21:34 Dose: 15 mg Documented by: Risperidone (Risperidone 1 Mg Tablet) 1 mg PO TID [facility] Last Admin: 12/19/20 08:22 Dose: Not Given Documented by: Sertraline HCl (Sertraline Hcl 25 Mg Tablet) 25 mg PO DAILY [facility] Last Admin: 12/19/20 08:21 Dose: 25 mg Documented by: Allergies Allergies Allergy/AdvReac Type Severity Reaction Status Date / Time No Known Allergies Allergy Unverified 12/13/20 15:16 Mental Status Exam Mental Status Exam Narrative: Appearance: casually groomed, fair hygiene, in NAD Behavior: somewhat guarded, minimal eye contact, superficially cooperative Psychomotor: no agitation or retardation noted Speech: clear, normal rate/rhythm/volume, spontaneous TP: linear TC: no signs of psychosis, hopeless/helpless Mood: anxious/tired Affect:blunted SI:passive, denies plan or intent HI:denies AH/VH:none Delusions:none Insight/judgment:fair-poor Memory/cog: alert, oriented x 3. grossly intact to conversational testing. Assessment & Plan Assessment & Plan (1) Major depressive disorder, recurrent severe without psychotic features: Status: Acute Code(s): F33.2 - Major depressive disorder, recurrent severe without psychotic features Assessment and Plan: Mr. Landrum is a 40 year-old male with hx of MDD/GETACHEW who self presented to [facility] ED on 12/13/20 due to increased anxious mood, depressed mood, hopeless/helpless, passive suicidal ideation. Pt has been mostly in clonazepam for anxiety. He had stopped sertraline some months ago. He reports withdrawal s/s of clonazepam including tremors, intense anxious mood when he has tried to decrease dose of clonazepam. We discussed trying to lower dose of clonazepam from 1mg po TID to BID, titrate antidepressant in this case sertraline. Pt agrees to increase sertraline, but somewhat reluctant to consider decrease in dose of clonazepam.He is also somatically preoccupied with several GI symptoms, which he reports have been ongoing for years but he has not been seen by GI. He reports episodes of diarrhea, frequent urination, abdominal cramping. (2) Generalized anxiety disorder: Status: Acute Code(s): F41.1 - Generalized anxiety disorder Reason for continued inpatient stay Substantial Risk for: harm to self
--- NOTE | 2020-12-18 17:11 | PC.NURSE ---
Patient c/o a lot of anxiety and tremulousness; he said he was upset that his Klonopin had been reduced to BID prn. [place] text sent to Natalia Munoz and orders for Klonopin 1 mg tid scheduled were done. Patient received an unscheduled dose of Klonopin to make up for his 1500 dose that was missed.
[2020-12-18 18:00] VITALS: BP 120/70; PULSE 92; TEMP 36.3
[2020-12-18] MEDS: Mirtazapine 7.5 MG TABLET 15 MG PO (21:34)
[2020-12-19 06:00] VITALS: BP 131/84; PULSE 95; RESP 20; TEMP 36.6; O2SAT 99
[2020-12-19] MEDS: clonazePAM 1 MG TABLET PO ×3 (08:21→21:55)
[2020-12-19] MEDS: Sertraline HCL 25 MG TABLET PO (08:21)
[2020-12-19 10:23] VITALS: BMI 31.1
--- NOTE | 2020-12-19 17:11 | P.PNPSI_ITS ---
Subjective Subjective Date of Service: 12/19/20 Reason For Visit: SI Subjective Notes: Conditional Voluntary Interim History: Pt reports feeling slightly less hopeless, less anxious. He does contiune to endorse depressed mood, passive suicidal ideation but denies an y plan or intent to hurt himself. He is very reluctant to reduction in clonazepam and fears withdrawal symptoms. He has been intermittently visible in unit, has attended some groups, mostly not interacting much with peers or staff. He continues to endorse fatigue, anhedonia. We discussed switching to venlafaxine to provide more energy during the day. He reports feeling too sedated with risperidone, and does not think that it is helping mood. He denies VH/AH. No signs of psychosis. Medication Compliance: Yes Review of Systems Review of Systems Constitutional: No Fever, No Chills, No Fatigue, No Malaise Cardiovascular: No Chest Pain, No SOB Respiratory: No Cough, No Dyspnea Gastrointestinal: No Nausea, No Vomiting, + Diarrhea, No Constipation, + Abdominal pain Genitourinary: No Dysuria, No Urinary Frequency, No Hematuria, No Flank Pain Musculoskeletal: No joint pain, No Myalgias, No Joint Swelling Skin: No Skin Lesions, No rash Psych: +Anxiety/Panic, No Depression, + SI/HI Yes all other systems are reviewed and are negative Constitutional: Reports fatigue Eyes: Reports no additional eye complaints Reports system reviewed and no additional complaints, except as documented Cardiovascular: Denies chest pain, Denies Loss of Consciousness and Denies dyspnea Respiratory: Denies chest congestion, Denies cough and Denies dyspnea Gastrointestinal: Reports bloating, Reports GI cramping, Reports early satiety and Reports diarrhea Genitourinary: Reports urinary frequency Endocrine: Reports fatigue Mental Status Exam Mental Status Exam Narrative: Appearance: casually groomed, fair hygiene, in NAD Behavior: somewhat guarded, minimal eye contact, superficially cooperative Psychomotor: no agitation or retardation noted Speech: clear, normal rate/rhythm/volume, spontaneous TP: linear TC: no signs of psychosis, hopeless/helpless Mood: anxious/tired Affect:blunted SI:passive, denies plan or intent HI:denies AH/VH:none Delusions:none Insight/judgment:fair-poor Memory/cog: alert, oriented x 3. grossly intact to conversational testing. Patient Appearance: Well Grooomed Patient Orientation: Person, Place, Time and Situation Level of Consciousness: Awake Patient Behavior: Appropriate, Talkative and Anxious Mood Description: Constricted, Anxious and Apprehensive Affect Description: Constricted, Anxious and Apprehensive Speech Pattern: Clear and Monotone Diagnostics Vital Signs (24Hr): Vital Signs - 24 hr 12/18/20 18:00 12/19/20 06:00 Temperature 97.3 F 97.8 F Pulse Rate 92 95 Respiratory Rate 20 Blood Pressure 120/70 131/84 Pulse Oximetry 99 Body Mass Index 31.1 Labs Results: 12/18/20 07:17 12/13/20 15:41 Labs: Laboratory Results - last 48 hr 12/18/20 12/18/20 12/18/20 07:17 07:17 07:17 WBC 6.7 RBC 5.11 Hgb 16.4 Hct 48.1 MCV 94.1 MCH 32.1 MCHC 34.1 RDW 11.9 Plt Count 237 MPV 8.4 L Immature Gran % (Auto) 0.3 Neut % (Auto) 54.4 Lymph % (Auto) 33.7 [place] % (Auto) 8.4 Eos % (Auto) 2.6 Baso % (Auto) 0.6 Lymph # (Auto) 2.2 [place] # (Auto) 0.6 Eos # (Auto) 0.2 Baso # (Auto) 0.0 Abs Immat Gran (auto) 0.02 Absolute Neuts (auto) 3.6 Absolute Nucleated RBC 0.000 Nucleated RBC % (auto) 0.0 Estimat Average Glucose 108 Hemoglobin A1c % 5.4 Triglycerides 200 Cholesterol 166 LDL Cholesterol, Calc 89 HDL Cholesterol 37 Vitamin B12 Folate TSH 1.83 12/18/20 07:17 WBC RBC Hgb Hct MCV MCH MCHC RDW Plt Count MPV Immature Gran % (Auto) Neut % (Auto) Lymph % (Auto) [place] % (Auto) Eos % (Auto) Baso % (Auto) Lymph # (Auto) [place] # (Auto) Eos # (Auto) Baso # (Auto) Abs Immat Gran (auto) Absolute Neuts (auto) Absolute Nucleated RBC Nucleated RBC % (auto) Estimat Average Glucose Hemoglobin A1c % Triglycerides Cholesterol LDL Cholesterol, Calc HDL Cholesterol Vitamin B12 586 Folate 18.7 TSH Medications Medications Current Medications Generic Name Dose Route Start Last Admin Trade Name Freq PRN Reason Stop Dose Admin Acetaminophen 650 mg 12/17/20 16:51 Acetaminophen 325 Mg Tablet PO Q6H PRN Headache/Pain Mild Scale (1-3) Al Hydroxide/Mg Hydroxide 30 ml 12/17/20 16:51 Magnesium Hydrox/Alum Hydrox 30 Ml Oral.Susp PO Q6H PRN Heartburn/Nausea Clonazepam 1 mg 12/18/20 21:00 12/19/20 14:32 Clonazepam 1 Mg Tablet PO 1 mg TID RUDDY Administration Hydroxyzine HCl 25 mg 12/17/20 16:51 Hydroxyzine Hcl 25 Mg Tablet PO Q6H PRN Anxiety Loperamide HCl 4 mg 12/16/20 09:32 12/17/20 14:03 Loperamide Hcl 2 Mg Capsule PO 4 mg Q6H PRN Administration Diarrhea Magnesium Hydroxide 30 ml 12/17/20 16:51 Milk Of Magnesia 30 Ml Oral.Susp PO DAILY PRN Constipation Mirtazapine 15 mg 12/13/20 21:45 12/18/20 21:34 Mirtazapine 7.5 Mg Tablet PO 15 mg BEDTIME RUDDY Administration Risperidone 1 mg 12/15/20 11:35 12/19/20 14:33 Risperidone 1 Mg Tablet PO Not Given TID RUDDY Venlafaxine HCl 37.5 mg 12/19/20 17:10 Venlafaxine Hcl Er 37.5 Mg Cap.Er.24h PO DAILY RUDDY Allergies Allergies Allergy/AdvReac Type Severity Reaction Status Date / Time No Known Allergies Allergy Unverified 12/13/20 15:16 Assessment & Plan Assessment & Plan (1) Major depressive disorder, recurrent severe without psychotic features: Status: Acute Code(s): F33.2 - Major depressive disorder, recurrent severe without psychotic features Assessment and Plan: Mr. Landrum is a 40 year-old male with hx of MDD/GETACHEW who self presented to [facility] ED on 12/13/20 due to increased anxious mood, depressed mood, hopeless/helpless, passive suicidal ideation. PLAN 1. d/c sertraline switch to effexor for anhedonia, low energy and depressed mood 2. continue clonazepam TID- however pt educated on high dose and physical tolerance that he has developed. pt reluctant to try reduction in dose. 3. d/c risperidone: started in ED. pt not psychotic, does not think it's helping mood and feeling sedated with it. (2) Generalized anxiety disorder: Status: Acute Code(s): F41.1 - Generalized anxiety disorder Greater than 50% of the session was spent on counseling and/or coordination of care Reason for contiued inpatient stay Substantial Risk for: harm to self
[2020-12-19 18:00] VITALS: BP 127/79; PULSE 101; TEMP 36.2
[2020-12-19] MEDS: Venlafaxine HCl ER 37.5 MG CAP.ER.24H PO (19:13)
[2020-12-19] MEDS: Mirtazapine 7.5 MG TABLET 15 MG PO (21:55)
[2020-12-20 06:00] VITALS: BP 132/73; PULSE 68; RESP 16; TEMP 36.4; O2SAT 97
[2020-12-20] MEDS: Venlafaxine HCl ER 37.5 MG CAP.ER.24H PO (08:38)
[2020-12-20] MEDS: clonazePAM 1 MG TABLET PO ×3 (08:38→22:04)
--- NOTE | 2020-12-20 09:52 | P.PNPSI_ITS ---
Subjective Subjective Date of Service: 12/21/20 Reason For Visit: SI Interim History: Pt reports feeling increasingly anxious this morning. He reports he had difficulty falling and staying asleep. He reports he has difficulty being in the hospital because he does not have control over when to take medications or when to eat. He also feels anxious about being around others. He reports he thinks risperidone may be helping and asks for lower dose to be restarted. He continues to be reluctant to decrease clonazepam due to fear of withdrawal. He denies SI/HI. minimizes degree of anxious mood. He declines psychotherapy as aftercare plan Review of Systems Review of Systems Constitutional: No Fever, No Chills, No Fatigue, No Malaise Cardiovascular: No Chest Pain, No SOB Respiratory: No Cough, No Dyspnea Gastrointestinal: No Nausea, No Vomiting, + Diarrhea, No Constipation, + Abdominal pain Genitourinary: No Dysuria, No Urinary Frequency, No Hematuria, No Flank Pain Musculoskeletal: No joint pain, No Myalgias, No Joint Swelling Skin: No Skin Lesions, No rash Psych: +Anxiety/Panic, No Depression, + SI/HI Yes all other systems are reviewed and are negative Constitutional: Reports fatigue Eyes: Reports no additional eye complaints Reports system reviewed and no additional complaints, except as documented Cardiovascular: Denies chest pain, Denies Loss of Consciousness and Denies dyspnea Respiratory: Denies chest congestion, Denies cough and Denies dyspnea Gastrointestinal: Reports bloating, Reports GI cramping, Reports early satiety and Reports diarrhea Genitourinary: Reports urinary frequency Endocrine: Reports fatigue Mental Status Exam Mental Status Exam Narrative: Appearance: casually groomed, fair hygiene, in NAD Behavior: somewhat guarded, minimal eye contact, superficially cooperative Psychomotor: no agitation or retardation noted Speech: clear, normal rate/rhythm/volume, spontaneous TP: linear TC: no signs of psychosis, hopeless/helpless Mood: anxious/tired Affect:blunted SI:passive, denies plan or intent HI:denies AH/VH:none Delusions:none Insight/judgment:fair-poor Memory/cog: alert, oriented x 3. grossly intact to conversational testing. Diagnostics Vital Signs (24Hr): Vital Signs - 24 hr 12/20/20 18:30 12/21/20 06:35 Temperature 98.5 F 98.5 F Pulse Rate 86 65 Respiratory Rate 16 Blood Pressure 133/79 121/67 Pulse Oximetry 95 Body Mass Index 31.1 Labs Results: 12/18/20 07:17 12/13/20 15:41 Medications Medications Current Medications Generic Name Dose Route Start Last Admin Trade Name Freq PRN Reason Stop Dose Admin Acetaminophen 650 mg 12/17/20 16:51 Acetaminophen 325 Mg Tablet PO Q6H PRN Headache/Pain Mild Scale (1-3) Al Hydroxide/Mg Hydroxide 30 ml 12/17/20 16:51 Magnesium Hydrox/Alum Hydrox 30 Ml Oral.Susp PO Q6H PRN Heartburn/Nausea Clonazepam 1 mg 12/18/20 21:00 12/21/20 08:14 Clonazepam 1 Mg Tablet PO 1 mg TID RUDDY Administration Hydroxyzine HCl 25 mg 12/17/20 16:51 12/20/20 15:01 Hydroxyzine Hcl 25 Mg Tablet PO 25 mg Q6H PRN Administration Anxiety Loperamide HCl 4 mg 12/16/20 09:32 12/17/20 14:03 Loperamide Hcl 2 Mg Capsule PO 4 mg Q6H PRN Administration Diarrhea Magnesium Hydroxide 30 ml 12/17/20 16:51 Milk Of Magnesia 30 Ml Oral.Susp PO DAILY PRN Constipation Mirtazapine 15 mg 12/13/20 21:45 12/20/20 22:05 Mirtazapine 7.5 Mg Tablet PO 15 mg BEDTIME RUDDY Administration Risperidone 0.5 mg 12/20/20 21:00 12/21/20 08:13 Risperidone 0.5 Mg Tablet PO 0.5 mg TID RUDDY Administration Venlafaxine HCl 75 mg 12/21/20 09:00 12/21/20 08:13 Venlafaxine Hcl Er 75 Mg Cap.Er.24h PO 75 mg DAILY RUDDY Administration Allergies Allergies Allergy/AdvReac Type Severity Reaction Status Date / Time No Known Allergies Allergy Unverified 12/13/20 15:16 Assessment & Plan Assessment & Plan (1) Major depressive disorder, recurrent severe without psychotic features: Status: Acute Code(s): F33.2 - Major depressive disorder, recurrent severe without psychotic features Assessment and Plan: Mr. Landrum is a 40 year-old male with hx of MDD/GETACHEW who self presented to [facility] ED on 12/13/20 due to increased anxious mood, depressed mood, hopeless/helpless, passive suicidal ideation. PLAN 1. d/c sertraline switch to effexor for anhedonia, low energy and depressed mood 2. continue clonazepam TID- however pt educated on high dose and physical tolerance that he has developed. pt reluctant to try reduction in dose. 3. restart risperidone 0.5mg po TID (2) Generalized anxiety disorder: Status: Acute Code(s): F41.1 - Generalized anxiety disorder Greater than 50% of the session was spent on counseling and/or coordination of care Reason for contiued inpatient stay Substantial Risk for: harm to self
[2020-12-20] MEDS: hydrOXYzine HCL 25 MG TABLET PO (15:01)
[2020-12-20 18:30] VITALS: BP 133/79; PULSE 86; TEMP 36.9
[2020-12-20] MEDS: Mirtazapine 7.5 MG TABLET 15 MG PO (22:05)
[2020-12-20] MEDS: risperiDONE 0.5 MG TABLET PO (22:05)
[2020-12-21 06:35] VITALS: BP 121/67; PULSE 65; RESP 16; TEMP 36.9; O2SAT 95
[2020-12-21] MEDS: Venlafaxine HCl ER 75 MG CAP.ER.24H PO (08:13)
[2020-12-21] MEDS: risperiDONE 0.5 MG TABLET PO ×2 (08:13→21:51)
[2020-12-21] MEDS: clonazePAM 1 MG TABLET PO ×3 (08:14→21:51)
--- NOTE | 2020-12-21 11:14 | P.PNPSI_ITS ---
Subjective Subjective Date of Service: 12/21/20 Reason For Visit: SI Interim History: Chart reviewed; case discussed with team. Vitals reviewed: wnl pt reports he's doing overall better but still having trouble sleeping. He says it's due to clonazepam withdrawal and that there is nothing to do about it. 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 He also says that he and Alexander agreed to lower Risperdal from TID to BID; writer technical publications informed that change had not yet been made and pt informed he will not take more than that. Pt asked about gabapentin to help with cutting down off clonazepam but did not want start trial now, and rather discuss it more with outpt provider. Pt says he's not depressed, just bummed out about current life situations. Mental Status Exam Mental Status Exam Narrative: Appearance: casually groomed, good hygiene Behavior: cooperative, calm, good eye contact. Psychomotor: no agitation or retardation noted Speech: clear, normal rate/rhythm/volume, spontaneous TP: linear, goal oriented TC: WNL Mood: bummed out Affect: congruent, appropriate SI:denies AH/VH:none Delusions:none Insight/judgment:fair-poor Diagnostics Vital Signs (24Hr): Vital Signs - 24 hr 12/20/20 18:30 12/21/20 06:35 Temperature 98.5 F 98.5 F Pulse Rate 86 65 Respiratory Rate 16 Blood Pressure 133/79 121/67 Pulse Oximetry 95 Body Mass Index 31.1 Labs Results: 12/18/20 07:17 12/13/20 15:41 Medications Medications Current Medications Generic Name Dose Route Start Last Admin Trade Name Freq PRN Reason Stop Dose Admin Acetaminophen 650 mg 12/17/20 16:51 Acetaminophen 325 Mg Tablet PO Q6H PRN Headache/Pain Mild Scale (1-3) Al Hydroxide/Mg Hydroxide 30 ml 12/17/20 16:51 Magnesium Hydrox/Alum Hydrox 30 Ml Oral.Susp PO Q6H PRN Heartburn/Nausea Clonazepam 1 mg 12/18/20 21:00 12/21/20 08:14 Clonazepam 1 Mg Tablet PO 1 mg TID RUDDY Administration Hydroxyzine HCl 25 mg 12/17/20 16:51 12/20/20 15:01 Hydroxyzine Hcl 25 Mg Tablet PO 25 mg Q6H PRN Administration Anxiety Loperamide HCl 4 mg 12/16/20 09:32 12/17/20 14:03 Loperamide Hcl 2 Mg Capsule PO 4 mg Q6H PRN Administration Diarrhea Magnesium Hydroxide 30 ml 12/17/20 16:51 Milk Of Magnesia 30 Ml Oral.Susp PO DAILY PRN Constipation Mirtazapine 15 mg 12/13/20 21:45 12/20/20 22:05 Mirtazapine 7.5 Mg Tablet PO 15 mg BEDTIME RUDDY Administration Risperidone 0.5 mg 12/20/20 21:00 12/21/20 08:13 Risperidone 0.5 Mg Tablet PO 0.5 mg TID RUDDY Administration Venlafaxine HCl 75 mg 12/21/20 09:00 12/21/20 08:13 Venlafaxine Hcl Er 75 Mg Cap.Er.24h PO 75 mg DAILY RUDDY Administration Allergies Allergies Allergy/AdvReac Type Severity Reaction Status Date / Time No Known Allergies Allergy Unverified 12/13/20 15:16 Assessment & Plan Assessment & Plan (1) Major depressive disorder, recurrent severe without psychotic features: Status: Acute Code(s): F33.2 - Major depressive disorder, recurrent severe without psychotic features Assessment and Plan: Mr. Landrum is a 40 year-old male with hx of MDD/GETACHEW who self presented [place] [facility] [place] on 12/13/20 due to increased anxious mood, depressed mood, hopeless/helpless, passive suicidal ideation. pt relatively stable PLAN: no changes to primary teams tx plan (other than making risperidone 0.5mg po BID down from TID as patient says this is what was discussed with Natalia Munoz; he says he won't take more than BID) 1. d/c sertraline switch to effexor for anhedonia, low energy and depressed mood 2. continue clonazepam TID- however pt educated on high dose and physical tolerance that he has developed. pt reluctant to try reduction in dose. 3. risperidone 0.5mg po TID (2) Generalized anxiety disorder: Status: Acute Code(s): F41.1 - Generalized anxiety disorder Greater than 50% of the session was spent on counseling and/or coordination of care Reason for contiued inpatient stay Substantial Risk for: med/psych decompensation and other
[2020-12-21 18:25] VITALS: BP 119/76; PULSE 85; TEMP 36.1
[2020-12-21] MEDS: Mirtazapine 7.5 MG TABLET 15 MG PO (21:51)
[2020-12-22 06:00] VITALS: BP 100/59; PULSE 74; RESP 16; TEMP 36.6; O2SAT 96
[2020-12-22] MEDS: risperiDONE 0.5 MG TABLET PO ×2 (08:04→21:49)
[2020-12-22] MEDS: Venlafaxine HCl ER 75 MG CAP.ER.24H PO (08:04)
[2020-12-22] MEDS: clonazePAM 1 MG TABLET PO ×3 (08:04→21:48)
--- NOTE | 2020-12-22 09:33 | P.PNPSI_ITS ---
Subjective Subjective Date of Service: 12/22/20 Reason For Visit: SI Interim History: Chart reviewed; case discussed with team. Vitals reviewed: mild hypotension Pt says im good and that he slept better last night, to which he's grateful for; of note, pt's affect noticeably brighter today. He denies any complaints and thanks communications writer. Mental Status Exam Mental Status Exam Narrative: Appearance: casually groomed, good hygiene Behavior: cooperative, calm, good eye contact. Psychomotor: no agitation or retardation noted Speech: clear, normal rate/rhythm/volume, spontaneous TP: linear, goal oriented TC: WNL Mood: good Affect: congruent, appropriate, brighter affect SI:denies AH/VH:none Delusions:none Insight/judgment:fair-poor Diagnostics Vital Signs (24Hr): Vital Signs - 24 hr 12/21/20 18:25 12/22/20 06:00 Temperature 96.9 F 97.8 F Pulse Rate 85 74 Respiratory Rate 16 Blood Pressure 119/76 100/59 L Pulse Oximetry 96 Body Mass Index 31.1 Labs Results: 12/18/20 07:17 12/13/20 15:41 Medications Medications Current Medications Generic Name Dose Route Start Last Admin Trade Name Freq PRN Reason Stop Dose Admin Acetaminophen 650 mg 12/17/20 16:51 Acetaminophen 325 Mg Tablet PO Q6H PRN Headache/Pain Mild Scale (1-3) Al Hydroxide/Mg Hydroxide 30 ml 12/17/20 16:51 Magnesium Hydrox/Alum Hydrox 30 Ml Oral.Susp PO Q6H PRN Heartburn/Nausea Clonazepam 1 mg 12/18/20 21:00 12/22/20 08:04 Clonazepam 1 Mg Tablet PO 1 mg TID RUDDY Administration Hydroxyzine HCl 25 mg 12/17/20 16:51 12/20/20 15:01 Hydroxyzine Hcl 25 Mg Tablet PO 25 mg Q6H PRN Administration Anxiety Loperamide HCl 4 mg 12/16/20 09:32 12/17/20 14:03 Loperamide Hcl 2 Mg Capsule PO 4 mg Q6H PRN Administration Diarrhea Magnesium Hydroxide 30 ml 12/17/20 16:51 Milk Of Magnesia 30 Ml Oral.Susp PO DAILY PRN Constipation Mirtazapine 15 mg 12/13/20 21:45 12/21/20 21:51 Mirtazapine 7.5 Mg Tablet PO 15 mg BEDTIME RUDDY Administration Risperidone 0.5 mg 12/21/20 21:00 12/22/20 08:04 Risperidone 0.5 Mg Tablet PO 0.5 mg BID RUDDY Administration Venlafaxine HCl 75 mg 12/21/20 09:00 12/22/20 08:04 Venlafaxine Hcl Er 75 Mg Cap.Er.24h PO 75 mg DAILY RUDDY Administration Allergies Allergies Allergy/AdvReac Type Severity Reaction Status Date / Time No Known Allergies Allergy Unverified 12/13/20 15:16 Assessment & Plan Assessment & Plan (1) Major depressive disorder, recurrent severe without psychotic features: Status: Acute Code(s): F33.2 - Major depressive disorder, recurrent severe without psychotic features Assessment and Plan: Mr. Landrum is a 40 year-old male with hx of MDD/GETACHEW who self presented to [facility] ED on 12/13/20 due to increased anxious mood, depressed mood, hopeless/helpless, passive suicidal ideation. pt relmains stable PLAN: no changes to primary teams tx plan (other than making risperidone 0.5mg po BID down from TID as patient says this is what was discussed with Natalia Munoz; he says he won't take more than BID) 1. d/c sertraline switch to effexor for anhedonia, low energy and depressed mood 2. continue clonazepam TID- however pt educated on high dose and physical tolerance that he has developed. pt reluctant to try reduction in dose. 3. risperidone 0.5mg po TID -he says he will discuss whether to try Gabapentin with outpt provider (2) Generalized anxiety disorder: Status: Acute Code(s): F41.1 - Generalized anxiety disorder Greater than 50% of the session was spent on counseling and/or coordination of care Reason for contiued inpatient stay Substantial Risk for: med/psych decompensation
[2020-12-22 16:33] VITALS: BP 131/74; PULSE 96; TEMP 36.6
[2020-12-22] MEDS: Mirtazapine 7.5 MG TABLET 15 MG PO (21:49)
[2020-12-23 07:00] VITALS: BP 113/67; PULSE 70; RESP 16; TEMP 36.8; O2SAT 94
[2020-12-23] MEDS: clonazePAM 1 MG TABLET PO ×3 (08:21→22:02)
[2020-12-23] MEDS: risperiDONE 0.5 MG TABLET PO ×2 (08:21→22:02)
[2020-12-23] MEDS: Venlafaxine HCl ER 75 MG CAP.ER.24H PO (08:21)
--- NOTE | 2020-12-23 17:12 | P.PNPSI_ITS ---
Subjective Subjective Date of Service: 12/23/20 Reason For Visit: SI Interim History: Pt reports appears with brighter affect. However, he continues to ruminate about somatic concerns, some hopeless as to he thinks he can't get any better. He does report that he is sleeping better. He was encouraged to attend groups and consider therapy post discharge. Pt reports he had meeting with parents yesterday and there was some tension about aftercare treatment. He states he was very upset with parents afterwards. He denies SI/HI. Review of Systems Review of Systems Constitutional: No Fever, No Chills, No Fatigue, No Malaise Cardiovascular: No Chest Pain, No SOB Respiratory: No Cough, No Dyspnea Gastrointestinal: No Nausea, No Vomiting, + Diarrhea, No Constipation, + Abdominal pain Genitourinary: No Dysuria, No Urinary Frequency, No Hematuria, No Flank Pain Musculoskeletal: No joint pain, No Myalgias, No Joint Swelling Skin: No Skin Lesions, No rash Psych: +Anxiety/Panic, No Depression, + SI/HI Yes all other systems are reviewed and are negative Constitutional: Reports fatigue Eyes: Reports no additional eye complaints Reports system reviewed and no additional complaints, except as documented Cardiovascular: Denies chest pain, Denies Loss of Consciousness and Denies dyspnea Respiratory: Denies chest congestion, Denies cough and Denies dyspnea Gastrointestinal: Reports bloating, Reports GI cramping, Reports early satiety and Reports diarrhea Genitourinary: Reports urinary frequency Endocrine: Reports fatigue Mental Status Exam Mental Status Exam Narrative: Appearance: casually groomed, good hygiene Behavior: cooperative, calm, good eye contact. Psychomotor: no agitation or retardation noted Speech: clear, normal rate/rhythm/volume, spontaneous TP: linear, goal oriented TC: WNL Mood: good Affect: congruent, appropriate, brighter affect SI:denies AH/VH:none Delusions:none Insight/judgment:fair-poor Diagnostics Vital Signs (24Hr): Vital Signs - 24 hr 12/23/20 07:00 Temperature 98.2 F Pulse Rate 70 Respiratory Rate 16 Blood Pressure 113/67 Pulse Oximetry 94 Body Mass Index 31.1 Labs Results: 12/18/20 07:17 12/13/20 15:41 Medications Medications Current Medications Generic Name Dose Route Start Last Admin Trade Name Freq PRN Reason Stop Dose Admin Acetaminophen 650 mg 12/17/20 16:51 Acetaminophen 325 Mg Tablet PO Q6H PRN Headache/Pain Mild Scale (1-3) Al Hydroxide/Mg Hydroxide 30 ml 12/17/20 16:51 Magnesium Hydrox/Alum Hydrox 30 Ml Oral.Susp PO Q6H PRN Heartburn/Nausea Clonazepam 1 mg 12/18/20 21:00 12/23/20 14:39 Clonazepam 1 Mg Tablet PO 1 mg TID RUDDY Administration Hydroxyzine HCl 25 mg 12/17/20 16:51 12/20/20 15:01 Hydroxyzine Hcl 25 Mg Tablet PO 25 mg Q6H PRN Administration Anxiety Loperamide HCl 4 mg 12/16/20 09:32 12/17/20 14:03 Loperamide Hcl 2 Mg Capsule PO 4 mg Q6H PRN Administration Diarrhea Magnesium Hydroxide 30 ml 12/17/20 16:51 Milk Of Magnesia 30 Ml Oral.Susp PO DAILY PRN Constipation Mirtazapine 15 mg 12/13/20 21:45 12/22/20 21:49 Mirtazapine 7.5 Mg Tablet PO 15 mg BEDTIME RUDDY Administration Risperidone 0.5 mg 12/21/20 21:00 12/23/20 08:21 Risperidone 0.5 Mg Tablet PO 0.5 mg BID RUDDY Administration Venlafaxine HCl 75 mg 12/21/20 09:00 12/23/20 08:21 Venlafaxine Hcl Er 75 Mg Cap.Er.24h PO 75 mg DAILY RUDDY Administration Allergies Allergies Allergy/AdvReac Type Severity Reaction Status Date / Time No Known Allergies Allergy Unverified 12/13/20 15:16 Assessment & Plan Assessment & Plan (1) Major depressive disorder, recurrent severe without psychotic features: Status: Acute Code(s): F33.2 - Major depressive disorder, recurrent severe without psychotic features Assessment and Plan: Mr. Landrum is a 40 year-old male with hx of MDD/GETACHEW who self presented to [facility] [place] ED on 12/13/20 due to increased anxious mood, depressed mood, hopeless/helpless, passive suicidal ideation. PLAN: 1. Increase Effexor to 112.5mg po daily. 2. continue clonazepam TID- however pt educated on high dose and physical tolerance that he has developed. pt reluctant to try reduction in dose. 3.continue risperidone 0.5mg po BID -he says he will discuss whether to try Gabapentin with outpt provider (2) Generalized anxiety disorder: Status: Acute Code(s): F41.1 - Generalized anxiety disorder Greater than 50% of the session was spent on counseling and/or coordination of care Reason for contiued inpatient stay Substantial Risk for: harm to self
[2020-12-23 19:45] VITALS: BP 121/76; PULSE 91; TEMP 35.9
[2020-12-23] MEDS: Mirtazapine 7.5 MG TABLET 15 MG PO (22:02)
[2020-12-24 06:00] VITALS: BP 99/48; PULSE 72; RESP 18; TEMP 36.7; O2SAT 97
[2020-12-24] MEDS: risperiDONE 0.5 MG TABLET PO ×2 (08:19→21:51)
[2020-12-24] MEDS: clonazePAM 1 MG TABLET PO ×3 (08:19→21:51)
[2020-12-24] MEDS: Venlafaxine HCl ER 37.5 MG CAP.ER.24H 112.5 MG PO (08:19)
[2020-12-24 18:25] VITALS: BP 125/69; PULSE 75; TEMP 36.5
--- NOTE | 2020-12-24 19:26 | P.PNPSI_ITS ---
Subjective Subjective Date of Service: 12/24/20 Reason For Visit: SI Interim History: Pt reports feeling less anxious, less depressed. He reports being able to be around others as he is much less anxious. He does continue with some inconsistent somatic concerns but overall he reports improvement in mood. He denies SI/HI. He reports last night was most restful. He is in agreement to follow up with psychiatrist and psychotherapist. Review of Systems Review of Systems Constitutional: No Fever, No Chills, No Fatigue, No Malaise Cardiovascular: No Chest Pain, No SOB Respiratory: No Cough, No Dyspnea Gastrointestinal: No Nausea, No Vomiting, + Diarrhea, No Constipation, + Abdominal pain Genitourinary: No Dysuria, No Urinary Frequency, No Hematuria, No Flank Pain Musculoskeletal: No joint pain, No Myalgias, No Joint Swelling Skin: No Skin Lesions, No rash Psych: +Anxiety/Panic, No Depression, + SI/HI Yes all other systems are reviewed and are negative Constitutional: Reports fatigue Eyes: Reports no additional eye complaints Reports system reviewed and no additional complaints, except as documented Cardiovascular: Denies chest pain, Denies Loss of Consciousness and Denies dyspnea Respiratory: Denies chest congestion, Denies cough and Denies dyspnea Gastrointestinal: Reports bloating, Reports GI cramping, Reports early satiety and Reports diarrhea Genitourinary: Reports urinary frequency Endocrine: Reports fatigue Mental Status Exam Mental Status Exam Narrative: Appearance: casually groomed, good hygiene Behavior: cooperative, calm, good eye contact. Psychomotor: no agitation or retardation noted Speech: clear, normal rate/rhythm/volume, spontaneous TP: linear, goal oriented TC: WNL Mood: good Affect: congruent, appropriate, brighter affect SI:denies AH/VH:none Delusions:none Insight/judgment:fair-poor Diagnostics Vital Signs (24Hr): Vital Signs - 24 hr 12/23/20 19:45 12/24/20 06:00 12/24/20 18:25 Temperature 96.7 F L 98.1 F 97.7 F Pulse Rate 91 72 75 Respiratory Rate 18 Blood Pressure 121/76 99/48 L 125/69 Pulse Oximetry 97 Body Mass Index 31.1 Labs Results: 12/18/20 07:17 12/13/20 15:41 Medications Medications Current Medications Generic Name Dose Route Start Last Admin Trade Name Freq PRN Reason Stop Dose Admin Acetaminophen 650 mg 12/17/20 16:51 Acetaminophen 325 Mg Tablet PO Q6H PRN Headache/Pain Mild Scale (1-3) Al Hydroxide/Mg Hydroxide 30 ml 12/17/20 16:51 Magnesium Hydrox/Alum Hydrox 30 Ml Oral.Susp PO Q6H PRN Heartburn/Nausea Clonazepam 1 mg 12/18/20 21:00 12/24/20 14:43 Clonazepam 1 Mg Tablet PO 1 mg TID RUDDY Administration Hydroxyzine HCl 25 mg 12/17/20 16:51 12/20/20 15:01 Hydroxyzine Hcl 25 Mg Tablet PO 25 mg Q6H PRN Administration Anxiety Loperamide HCl 4 mg 12/16/20 09:32 12/17/20 14:03 Loperamide Hcl 2 Mg Capsule PO 4 mg Q6H PRN Administration Diarrhea Magnesium Hydroxide 30 ml 12/17/20 16:51 Milk Of Magnesia 30 Ml Oral.Susp PO DAILY PRN Constipation Mirtazapine 15 mg 12/13/20 21:45 12/23/20 22:02 Mirtazapine 7.5 Mg Tablet PO 15 mg BEDTIME RUDDY Administration Risperidone 0.5 mg 12/21/20 21:00 12/24/20 08:19 Risperidone 0.5 Mg Tablet PO 0.5 mg BID RUDDY Administration Venlafaxine HCl 112.5 mg 12/24/20 09:00 12/24/20 08:19 Venlafaxine Hcl Er 37.5 Mg Cap.Er.24h PO 112.5 mg DAILY RUDDY Administration Allergies Allergies Allergy/AdvReac Type Severity Reaction Status Date / Time No Known Allergies Allergy Unverified 12/13/20 15:16 Assessment & Plan Assessment & Plan (1) Major depressive disorder, recurrent severe without psychotic features: Status: Acute Code(s): F33.2 - Major depressive disorder, recurrent severe without psychotic features Assessment and Plan: Mr. Landrum is a 40 year-old male with hx of MDD/GETACHEW who self [place] [facility] [place] due to increased anxious mood, depressed mood, hopeless/helpless, passive suicidal ideation. PLAN: 1. Continue Effexor to 112.5mg po daily. 2. continue clonazepam TID- however pt educated on high dose and physical tolerance that he has developed. pt reluctant to try reduction in dose. 3.continue risperidone 0.5mg po BID -he says he will discuss whether to try Gabapentin with outpt provider (2) Generalized anxiety disorder: Status: Acute Code(s): F41.1 - Generalized anxiety disorder Greater than 50% of the session was spent on counseling and/or coordination of care Reason for contiued inpatient stay Substantial Risk for: rapid decompensation
[2020-12-24] MEDS: Mirtazapine 7.5 MG TABLET 15 MG PO (21:51)
[2020-12-25 06:00] VITALS: BP 115/61; PULSE 67; RESP 18; TEMP 36.4; O2SAT 95
[2020-12-25] MEDS: clonazePAM 1 MG TABLET PO ×3 (08:42→21:48)
[2020-12-25] MEDS: risperiDONE 0.5 MG TABLET PO ×2 (08:42→21:48)
[2020-12-25] MEDS: Venlafaxine HCl ER 37.5 MG CAP.ER.24H 112.5 MG PO (08:42)
--- NOTE | 2020-12-25 15:22 | HO.PSYCHPN ---
Subjective Subjective Date of Service: 01/21/21 Reason For Visit: SI Interim History: Pt reports feeling less anxious, less depressed. He reports being able to be around others as he is much less anxious. He does continue with some inconsistent somatic concerns but overall he reports improvement in mood. He denies SI/HI. He reports last night was most restful. He is in agreement to follow up with psychiatrist and psychotherapist. Review of Systems Review of Systems Constitutional: No Fever, No Chills, No Fatigue, No Malaise Cardiovascular: No Chest Pain, No SOB Respiratory: No Cough, No Dyspnea Gastrointestinal: No Nausea, No Vomiting, + Diarrhea, No Constipation, + Abdominal pain Genitourinary: No Dysuria, No Urinary Frequency, No Hematuria, No Flank Pain Musculoskeletal: No joint pain, No Myalgias, No Joint Swelling Skin: No Skin Lesions, No rash Psych: +Anxiety/Panic, No Depression, + SI/HI Yes all other systems are reviewed and are negative Constitutional: Reports fatigue Eyes: Reports no additional eye complaints Reports system reviewed and no additional complaints, except as documented Cardiovascular: Denies chest pain, Denies Loss of Consciousness and Denies dyspnea Respiratory: Denies chest congestion, Denies cough and Denies dyspnea Gastrointestinal: Reports bloating, Reports GI cramping, Reports early satiety and Reports diarrhea Genitourinary: Reports urinary frequency Endocrine: Reports fatigue Mental Status Exam Mental Status Exam Narrative: Appearance: casually groomed, good hygiene Behavior: cooperative, calm, good eye contact. Psychomotor: no agitation or retardation noted Speech: clear, normal rate/rhythm/volume, spontaneous TP: linear, goal oriented TC: WNL Mood: good Affect: congruent, appropriate, brighter affect SI:denies AH/VH:none Delusions:none Insight/judgment:fair-poor Patient Orientation: Time and Situation Patient Behavior: Appropriate Mood Description: Constricted Speech Pattern: Clear Diagnostics Vital Signs (24Hr): Body Mass Index 31.1 Labs Results: 12/18/20 07:17 12/13/20 15:41 Medications Allergies Allergies Allergy/AdvReac Type Severity Reaction Status Date / Time No Known Allergies Allergy Unverified 12/13/20 15:16 Assessment & Plan Assessment & Plan (1) Major depressive disorder, recurrent severe without psychotic features: Status: Acute Code(s): F33.2 - Major depressive disorder, recurrent severe without psychotic features Assessment and Plan: Mr. Landrum is a 40 year-old male with hx of MDD/GETACHEW who [place] [facility] [place] due to increased anxious mood, depressed mood, hopeless/helpless, passive suicidal ideation. PLAN: 1. Continue Effexor to 112.5mg po daily. 2. continue clonazepam TID- however pt educated on high dose and physical tolerance that he has developed. pt reluctant to try reduction in dose. 3.continue risperidone 0.5mg po BID -he says he will discuss whether to try Gabapentin with outpt provider (2) Generalized anxiety disorder: Status: Acute Code(s): F41.1 - Generalized anxiety disorder Greater than 50% of the session was spent on counseling and/or coordination of care Reason for contiued inpatient stay Substantial Risk for: stable for discharge
[2020-12-25 19:05] VITALS: BP 120/81; PULSE 87; RESP 18; TEMP 36.2; O2SAT 96
[2020-12-25] MEDS: Mirtazapine 7.5 MG TABLET 15 MG PO (21:48)
[2020-12-26 07:30] VITALS: BP 114/67; PULSE 64; RESP 18; TEMP 37.1; O2SAT 96
[2020-12-26] MEDS: risperiDONE 0.5 MG TABLET PO (08:27)
[2020-12-26] MEDS: Venlafaxine HCl ER 37.5 MG CAP.ER.24H 112.5 MG PO (08:27)
[2020-12-26] MEDS: clonazePAM 1 MG TABLET PO (08:27)
--- NOTE | 2020-12-26 10:11 | P.DS_ITS ---
DS: Providers Provider Date of Service: 01/21/21 Date of admission: 12/17/20 16:51 Primary care physician: DIONNA Singh Consults: 12/18/20 16:37 Consult to Gastroenterology Routine Consulting Provider: Cassy Nation Reason for consultation: loose stool x one year DS: Diagnosis Discharge Diagnosis (1) Major depressive disorder, recurrent severe without psychotic features: Status: Acute (2) Generalized anxiety disorder: Status: Acute DS: Medications Discharge Medications Home Medications: Home Medications Medication Instructions Recorded Confirmed clonazepam 1 mg PO TID PRN 12/13/20 12/13/20 Previous Rx's Medication Instructions Recorded mirtazapine 15 mg PO BEDTIME 15 Days #30 tab 12/26/20 risperidone 0.5 mg PO BID 30 Days #60 tab 12/26/20 venlafaxine 112.5 mg PO DAILY 15 Days #45 cap 12/26/20 Discharge Plan Discharge Patient Disposition: Home, Self-Care Discharge Diagnosis: MDD, recurrent, moderate; GETACHEW Referrals: [employer] [Other] (Call or visit website for information and assistance applying for benefits) Dr. Kirby (psychiatrist) [Other] - 01/13/21 9:30 am (Telehealth appointment (video call)) Michelle Saxena (therapist) [Other] - 01/01/21 1:00 pm (In-person appointment) Bakari Lynn [Physician] - 1 Week ( OFFICE WILL PATIENT WITH AN APPOINTMENT.) Discharge Medications: New venlafaxine 37.5 mg Capsule,Extended Release 24hr 112.5 mg PO DAILY 15 Days Qty: 45 RF: 1 risperidone 0.5 mg Tablet 0.5 mg PO BID 30 Days Qty: 60 RF: 0 mirtazapine 7.5 mg Tablet 15 mg PO BEDTIME 15 Days Qty: 30 RF: 0 Continued clonazepam 1 mg Tablet 1 mg PO TID PRN (Reason: Anxiety) RF: 0 Discontinued mirtazapine 30 mg Tablet 15 mg PO BEDTIME RF: 0 Discharge Orders: Discharge Order (Routine); Ordered 12/26/20 Ordered By: Natalia Munoz Diet: regular diet Activity on Discharge: As tolerated Stand Alone Forms: Patient Portal Discharge page, Community Support Care Plan Goals: 1. Take medications as prescribed Health Concerns: Follow up with PCP Plan of Treatment: 1. Follow up with appointments. 2. Go to nearest ED or call 911 in case of emergency Assessment: Pt stable; less anxious. No SI/HI. Discharge Date/Time: 12/26/20 12:20 Mental Status Exam Mental Status Exam Narrative: Appearance: casually groomed, good hygiene Behavior: cooperative, calm, good eye contact. Psychomotor: no agitation or retardation noted Speech: clear, normal rate/rhythm/volume, spontaneous TP: linear, goal oriented TC: WNL Mood: good Affect: congruent, appropriate, brighter affect SI:denies AH/VH:none Delusions:none Insight/judgment:fair-poor DS: Summary Hospital Course Hospital Course: Mr. Arechiga is a 40 year-old male with hx of mdd, anxiety who [place] [facility] [place] reporting increased anxiety, passive suicidal ideation, increased depressed mood, feeling hopeless/helpless. He reported stopping exterminator helper termite dose of clonazepam 1mg po TID abruptly and experiencing symptoms of withdrawal. Pt reports having a seizure but denies LOC, which makes it less likely to have been a seizure. In the ED, his utox was negative for opioids, amphetamines, benzodiazepines, cocaine. He was seen in the ED by Dr. Christine Mercado who restarted patient on zoloft, risperidone and clonazepam. On the unit, Mr. Arechiga presents with blunted affect. He reports he was doing fairly fine up until about one month ago when he started feeling increasingly more hopeless, anxious, low energy, anhedonia. He reports clonazepam was no longer working for his mood and as he became more hopeless/helpless he decided to stop it cold turkey as in the past he has experienced withdrawal symptoms (note no witnessed seizure although pt claims he has had one which he noted on his own). He states intent of stopping cold turkey was hoping he would have a benzo withdrawal seizure and . On the unit, he continues to endorse depressed mood, passive suicidal ideation but denies any plan or intent. He denies history of visual or auditory hallucinations. He denies s/s of hypomanic/manic episodes Collateral information was gathered from both parents. They report Mr. Arechiga has always been a shy person, not relating much with others, minimal social relationship. They report pt has suffered from anxiety as child/teen, especially agoraphobia, which pt currently denies and instead he reports an overall feeling of anxiety. No OCD traits. They denied history of suicide attempts. Parents concerns about possible physical dependency with exterminator helper termite use of clonazepam and fact that pt is reluctant to decrease dose or try o ther medications to manage his anxiety and depression. Pt has also decline individual psychotherapy for years. No hx of substance use- other than possible dependence to clonazepam. Pt and family denied hx of trauma. Pt denies trauma related to being in the . Past Psychiatric History: Inpatient: [facility] 2016 due to anxiety/depression OP: Dr. Kirby ([phone]) Suicide attempts: pt tried to stop clonazepam cold turkey hoping to have seizure and prior to this admission. Past medication trial: sertraline, paxil, clonazepam, risperidone, remeron HOSPITAL COURSE Mr. Arechiga was admitted on a CV and placed on 15 minutes checks for safety. He endorse severe anxious mood, feeling hopeless/helpless. He reported passive suicidal ideation but denied any plan or intent. He reported several somatic complaints, mostly GI, which per his OP providers he has had medical work up without focal findings. Pt also reported that despite high dose of clonazepam he had withdrawals in between doses. After discussing risks, benefits and alternative treatment options, pt agreed to start venlafaxine for depression, anxiety. He was educated on exterminator helper termite effects of high dose clonazepam, but he did not want to lower the dose. He was continued on remeron for sleep. His affect gradually appear slightly brighter. He reported feeling less hopeless/helpless. He was increasingly more visible in the unit and social with select peers. He attended a few groups. He initially had decline referrals for OP psychotherapy. He agreed to continue working with his OP psychiatrist, Kofi Lau. He later agreed to continue psychotherapy as well. Collateral information gathered from his parents who reported at time of discharge, that pt appeared in much improved condition, brighter, and denied any safety concerns. Time spent discussing smoking cessation with patient: 3 to 10 minutes Status at Discharge Cognitive/behavioral status at discharge: Pt reports less depression, less anxious. No SI/HI. No signs of aggression towards self or others. Functional status at discharge: independent ambulation Overall status at discharge: patient is progressing back to baseline Time Spent with Patient Time attestation: Total time spent providing and/or coordinating discharge services: Time spent: Greater than 30 minutes
--- NOTE | 2020-12-26 11:07 | PC.NURSE ---
PTS AWARE AND READY FOR DISCHARGE. PTS ANXIETY IS IMPROVING WITH MEDICATION. PT DENIES DEPRESSION. HE DENIES ANY CURRENT URGES TO HARM HIMSELF OR OTHERS. PT DENIES AUDITORY OR VISUAL HALLUCINATIONS. PT HAS BEEN VISIBLE ON THE UNIT, WALKING A COPING SKILL. HE HAS BEEN ATTENDING SOME GROUPS BUT NOT PARTICIPATING. PT REPORTS THAT HE IS SLEEPING WELL FOR THE FIRST TIME IN A LONG TIME. PT HAS BEEN EATING ADEQUATELY. HE HAS BEEN INDEPENDENTLY TAKING CARE OF ADLS. PTS PAPERWORK WILL BE FAXED TO PROVIDERS PER PROTOCOL.
== END 2020-12-26 12:20 | disposition home or self-care (01) | DRG 885 ==
LOC: HO.ED 12-17 14:41 → HO.PM5 12-17 17:03
PROVIDERS: Nurse Practitioner Family; Physician Assistant; Admitting Provider Psychiatry & Neurology Psychiatry; Emergency Provider Emergency Medicine; PCP Physician Assistant; Visit Provider Social Worker
DX: F33.2 Major depressive disorder, recurrent severe without psychotic features (principal); R45.851 Suicidal ideations; F41.1 Generalized anxiety disorder; Z20.822 Contact with and (suspected) exposure to COVID-19; Z79.899 Other long term (current) drug therapy
CPT/HCPCS: 36415; 80048; 80061; 80076; 80307; 81003; 82607; 82746; 83036; 83690; 83735; 84443; 85025; 87635; 93005; 99285; Q0163